=== PATIENT | female | born 1995 | race Caucasian/White ===

== ENCOUNTER → 2024-03-11 | Outpatient (CLI) | payer BC ==
[~2024-03-11] MED LIST: LOESTRIN 21 1.51 TAB PO; MEDROL DOSEPAK4 MG PO; SOLODYN45 MG PO
== END | disposition home or self-care (01) ==
LOC: RAD 14:37
PROVIDERS: ATTEND Chiropractor
DX: M54.2 Cervicalgia (principal); M54.6 Pain in thoracic spine; M54.50 Low back pain, unspecified